=== PATIENT | female | born 1955 | race Caucasian/White ===

== ENCOUNTER → 2016-12-14 | Day surgery (SDC) | payer OTHER ==
[~2016-12-14] MED LIST: BUPIVACAINE/EPINEPHRINE 0.5% PF 10 ML VIAL ONE; ISOSULFAN BLUE 50 MG/5 ML VIAL SQ ONE; LACTATED RINGER'S 1000 ML INJ 1,000 ML ONE; LORTA5 PO; MIDAZOLAM HCL 2 MG/2 ML VIAL ONE; ONDANSETRON HCL 4 MG/2 ML VIAL IV PUSH ONE; PROPOFOL 200 MG/20 ML AMP IV ONE; ceFAZolin 2 GM PREMIX 50 ML ONE
--- NOTE | 2016-12-14 13:37 | TN ---
cc: JONATHAN PUENTES M.D. DATE OF SURGERY: 12/14/2016 PREOPERATIVE DIAGNOSIS 1. Right breast cancer in axillary mass. 2. 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 POSTOPERATIVE DIAGNOSIS 1. Right breast cancer in axillary mass. 2. 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 PROCEDURE PERFORMED Needle-localized wide local excision right axillary mass. SURGEON Jonathan Puentes MD ANESTHESIA General LMA. COMPLICATIONS None. INDICATION FOR PROCEDURE Tenisha Rojas is a very pleasant 61-year-old female who had a DCIS in the right breast several years ago. She underwent a needle-localized lumpectomy with postoperative fatty radiation and a sentinel node excision. At that time she was found to have a DCIS only and the two sentinel nodes were negative. She has done quite well. She had noted a breast mass last year which was imaged and then biopsied and found to be fat necrosis. Earlier this year she noted a right axillary mass that she stated would intermittently get big and then get small again. She went for ultrasound which demonstrated a 3 cm solid and cystic mass most likely consistent with seroma, however, there was a solid component and biopsy was recommended. She underwent biopsy and this was found to be ductal carcinoma. She underwent MRI after that which showed no concerning breast lesions and only the lesion in the right axilla. She was discussed at breast conference and the plan was decided to go ahead and excise the lesion in the right axilla to see if it was a lymph node or possibly an axillary tail new breast cancer. This was discussed with the patient and her and they were agreeable. DETAILS OF PROCEDURE The patient was identified, brought to the operating room and placed supine on the operating table. After adequate general anesthesia was achieved with LMA, the right axilla was prepped and draped in standard surgical fashion. Elliptical skin incision was used to excise the skin overlying the wire. Next using generous margins an axillary sampling was performed to make sure that we had negative margins in all directions, away from the wire. Dissection proceeded up to the axillary vein and medially to the pectoralis muscle and chest wall. The wire was excised with a generous sample of surrounding fatty tissue in all directions. Specimen was labeled with a short stitch superior and the wire demarcated the lateral border. Specimen was palpated and the mass was found to be in the central portion of the specimen. It was sent to radiology for analysis and Dr. Stearns had called back stating the mass and clip were present within the specimen. At this point the axilla was palpated and there were no palpable obvious axillary nodes. There were no other masses in the chest wall or the axilla that I could palpate. At this point the wound was copiously irrigated with normal saline solution. A 7-Israeli Sean-L[place] drain was inserted through a separate stab wound incision and then the wound was closed in two layers using 3-0 Vicryl and 4-0 Monocryl. Sterile dressings were applied and the patient was awakened, brought to recovery in stable condition. MD CHACHO Morrow/FABIEN /1:18 PM /1:25 PM
== END | disposition home or self-care (01) ==
LOC: ESDC 08:53
PROVIDERS: ATTEND Surgery Trauma Surgery
CPT/HCPCS: 00400; 19125; 88305; 88307 ×2; J0690; J2250; J2405; J3010; J7120; Q9968

== ENCOUNTER 2017-11-01 12:58 | Day surgery (SDC) | payer OTHER ==
[~2017-11-01] VITALS: Ht 165.1 cm; Wt 70.5 kg
--- NOTE | 2017-11-01 07:23 | MH ---
cc: Jaxson Baumann MD, Ruby Anne E MD Karakossian, Samira DATE OF ADMISSION: 11/01/2017 CHIEF COMPLAINT: The patient will come for bronchoscopy on 11/01/2017. HISTORY OF PRESENT ILLNESS: Ms. Rojas is a 62-year-old female with a history of hypertension, hypercholesteremia. She has recurrent stage IIA breast carcinoma. She had adjuvant hormonal therapy. She had lumpectomy done and radiation treatment. She has cough for the last 1-2 weeks. No fever or chills. No night sweats. She has unintentional weight loss. She had a CT scan of the chest done, which shows she has dense and irregular area of consolidation involving both lungs. Some of them has air bronchogram. The largest area is 7 cm in the superior segment of the left lower lobe, also 5.4 cm area in the left upper lobe, 5.3 cm in the right lower lobe. She also has scarring in the right breast. PAST MEDICAL HISTORY: History of recurrent CA of the breast, status post lumpectomy, radiation treatment, adjuvant hormone therapy, history of hysterectomy and hypertension. MEDICATIONS: She is taking lisinopril 20, Crestor 20 mg, Aromasin 20 mg a day. ALLERGIES: NO KNOWN DRUG ALLERGIES. SOCIAL HISTORY: She has 15 years of smoking 1 pack a day, which she quit. No alcohol or drug abuse. She is retired, worked in insurance industry. She is third time for 20 years. FAMILY HISTORY: She has 1 child. She has 1 brother, 1 sister who with multiple myeloma. Mother with cancer of the colon. Father is alive at 86. REVIEW OF SYSTEMS: She has lost about 10-pound weight, complains of fatigue, persistent cough, shortness of breath, nausea. PHYSICAL EXAMINATION: GENERAL: [facility] female comes with her , not in acute distress. VITAL SIGNS: Blood pressure 140/84, heart rate 97, respirations 16, oxygen saturation 95%. HEENT: Pupils are equal, round, reactive to light. Oral mucosa and nasal mucosa are normal. NECK: Supple. No JVD noted. CHEST: [place] sounds bilaterally. No rhonchi. CARDIOVASCULAR: S1, S2 normal. ABDOMEN: Benign. EXTREMITIES: No edema. IMPRESSION: 1. Bilateral dense irregular infiltrate, largest one is 7 cm in the left lower lobe superior segment. Also, has a 5.4 cm density in the right lower lobe posteriorly and also a nodule in the major fissure in the right lung. 2. Findings are concerning for inflammatory process; however, malignancy is not ruled out. 3. Recurrent carcinoma of the breast. 4. Postnasal drip. 5. Hypertension. PLAN: I discussed with the patient and her , she will need bronchoscopy. I have discussed with them, procedure and the complications, including complication of anesthesia, pneumothorax requiring chest tube, bleeding complication, injury to the blood vessel, lungs, nose, arrhythmia, hypoxia and possibility of nondiagnostic biopsies. They understand and want to proceed with it. She will be scheduled for bronchoscopy at [facility] for 11/01/2017. MD ROSA De Leon/TONJA/hamida , 10:52 PM , 11:41 PM PRADIP
[~2017-11-01 12:58] MED LIST changes: -BUPIVACAINE/EPINEPHRINE 0.5% PF 10 ML VIAL ONE; -ISOSULFAN BLUE 50 MG/5 ML VIAL SQ ONE; -LACTATED RINGER'S 1000 ML INJ 1,000 ML ONE; -MIDAZOLAM HCL 2 MG/2 ML VIAL ONE; -ONDANSETRON HCL 4 MG/2 ML VIAL IV PUSH ONE; -PROPOFOL 200 MG/20 ML AMP IV ONE; -ceFAZolin 2 GM PREMIX 50 ML ONE
[2017-11-01 13:26] VITALS: BP 128/79; PULSE 99; RESP 18; TEMP 97.3; O2SAT 97
[2017-11-01] MEDS ORDERED: SODIUM CHLORID 0.9% 500 ML IV PRN (13:45)
[2017-11-01] MEDS ORDERED: LACTATED RINGER'S 1000 ML IV PRN (13:45)
[2017-11-01] MEDS ORDERED: SODIUM CHLOR 0.45% 1000 ML INJ 1,000 ML IV SCH (13:45)
[2017-11-01] MEDS ORDERED: RESP: ALBUTEROL 2.5 MG/3 ML NEB (PRN) INH (13:45)
[2017-11-01] MEDS ORDERED: RESP: LIDOCAINE HCL 4% PF 5 ML NEB NEB PRN (13:45)
[2017-11-01] MEDS ORDERED: METOPROLOL TARTRATE 25 MG TAB PO PRN (13:45)
[2017-11-01] MEDS ORDERED: POVIDONE IODINE 5% (ANTISEPSIS KIT) 4 APPLICATIONS EACH NARE PRN (13:45)
[2017-11-01] MEDS ORDERED: CHLORHEXIDINE GLUCONATE 2 % 1 PACK (2 CLOTHS) TOPICAL PRN (13:45)
[2017-11-01] MEDS ORDERED: INSULIN HUMAN REGULAR 1,000 UNITS/10 ML VIAL SQ PRN (13:45)
[2017-11-01 13:57] LABS: INTERNATIONAL NORMALIZED RATIO 1.2 RATIO; PROTHROMBIN TIME - PATIENT 12.1 SEC (9.8-11.6)
[2017-11-01] MEDS ORDERED: LISI-515 PO (14:06)
[2017-11-01] MEDS ORDERED: ROSU20 PO (14:06)
[2017-11-01] MEDS ORDERED: EXEN1INJ2 SQ (14:07)
[2017-11-01] MEDS ORDERED: AROM25TA PO (14:42)
--- NOTE | 2017-11-01 15:57 | MR ---
cc: Jaxson Baumann MD DATE: 11/01/2017 DATE OF PROCEDURE: 11/01/2017. PROCEDURE PERFORMED: Bronchoscopy. DIAGNOSIS: Right and left lung densities. DESCRIPTION OF PROCEDURE: Informed consent was obtained from the patient. Procedure and the complications, including complication of anesthesia, pneumothorax requiring chest tube, bleeding complication, injury to the blood vessel, lungs, nose, arrhythmia, hypoxia were explained. She consented for the procedure. The patient was brought to endoscopy suite under general anesthesia. LMA tube was placed by anesthesiologist. Bronchoscopy was done through an LMA tube. Vocal cords were normal. Trachea was normal. Bronchoscope advanced to the right lung. Right upper, middle, and lower lobe visualized. No mucus, no erythema, no endobronchial lesion. Washing from the right lung were done. The bronchoscope was pulled back and advanced to the left lung. Left upper lingular, lower lobe were visualized. No endobronchial mucosal lesion was seen. Left lung brushing biopsy and washings was done. Bronchial washings sent for routine culture, AFB, fungal culture and cytology. Brushings sent for cytology and biopsy sent for pathology. She tolerated the procedure well. Postprocedure chest x-ray ordered to rule out pneumothorax. Jaxson Baumann MD ADA/TL , 03:29 PM , 03:56 PM
--- NOTE | 2017-11-01 16:30 | RADRPT ---
EXAM DATE/TIME: 11/01/2017 16:03 [facility] COMPARISON: CT SIMULATION, January 26, 2017, 14:28. FLUOROSCOPY PORTABLE UP TO 1HR, November 01, 2017, 0:00. INDICATIONS : Post bronchoscopy. MEDICAL HISTORY : none known SURGICAL HISTORY : none known ENCOUNTER: Initial ACUITY: 1 day PAIN SCORE: 0/10 LOCATION: Bilateral chest FINDINGS: Single view of the thorax demonstrates a 3.7 x 3.3 cm masslike density in the lateral margin of the l eft upper lobe. There is volume loss on the left as well. The right lung is clear. The heart is linda l in size. No pneumothorax is seen. Visualized bony structures are intact. CONCLUSION: No pneumothorax identified following bronchoscopy. Randolph Grey MD on November 01, 2017 at 16:25 Board Certified Radiologist. This report was verified electronically.
[2017-11-01] MEDS ORDERED: MIDAZOLAM HCL 2 MG/2 ML VIAL ONE (17:05)
[2017-11-01 17:09] VITALS: BP 109/62; PULSE 90; RESP 20; TEMP 97.8; O2SAT 95
[2017-11-01] MEDS ORDERED: DO NOT ADM ANY ANTICOAGULANT DRUGS PRN (20:30)
--- NOTE | 2017-11-03 12:08 | EKG ---
Date Performed: 11/01/2017 Time Performed: 13:41:17 PTAGE: 62 years EKG: Sinus rhythm WITH OCCASIONAL ECTOPIC PREMATURE COMPLEXES BORDERLINE ECG NO PREVIOUS TRACING DOCTOR: Alfredo Middleton Interpretating Date/Time 11/03/2017 11:57:14
== END 2017-11-01 17:37 | disposition home or self-care (01) ==
LOC: HSDC 12:58 → HRIP 13:00 → HSDC 17:37
PROVIDERS: ATTEND Specialist
DX: J98.2 Interstitial emphysema (principal); C50.911 Malignant neoplasm of unspecified site of right female breast; I10 Essential (primary) hypertension; E78.00 Pure hypercholesterolemia, unspecified; Z90.710 Acquired absence of both cervix and uterus
CPT/HCPCS: 00520; 31625; 71045; 76000; 85610; 85730; 87015; 87070; 87102; 87116; 87205; 87206; 88112; 88305; 93005; 94664; J2250; J7613